=== PATIENT | male | born 1960 | race Hispanic/Latino ===

== ENCOUNTER 2017-02-15 10:16 | Emergency (ER) | payer OTHER ==
[~2017-02-15] VITALS: Ht 165.1 cm; Wt 100.0 kg
[2017-02-15] MEDS ORDERED: NAPROSYN500 MG PO (11:12)
[2017-02-15 11:39] VITALS: BP 120/90
== END 2017-02-15 11:48 | disposition home or self-care (01) | DRG 563 ==
LOC: ED 10:16
DX: S83.92XA Sprain of unspecified site of left knee, initial encounter (principal); W17.2XXA Fall into hole, initial encounter; Y92.73 Farm field as the place of occurrence of the external cause

== ENCOUNTER 2023-06-25 20:54 | Emergency (ER) | payer MEDICARE, MEDICAID ==
[~2023-06-25] VITALS: Ht 165.1 cm; Wt 113.3 kg
[~2023-06-25 20:54] MED LIST: NAPROSYN500 MG PO
[2023-06-25 21:04] VITALS: BP 127/105
[2023-06-25 21:16] VITALS: BP 133/76
[2023-06-25 21:41] LABS: BASO% 0.2 % (0-3); HEMOGLOBIN 15.2 g/dl (14.0-18.0); IMMATURE GRANULOCYTES 0.7 % (0.0-5.0); LYMPH% 4.6 % (15-41); MEAN CELL VOLUME 89.7 fL CALC (80.0-100.0); MEAN CORPUSCULAR HGB CONC 32.3 g/dL CAL (32.0-36.0); MONO% 3.6 % (2-13); NEUT# 19.54 thou/uL (1.82-7.42); NEUT% 90.9 % (42-76); RED BLOOD COUNT 5.24 mill/uL (4.70-6.10); RED CELL DISTRI WIDTH 13.1 % (11.5-15.5)
[2023-06-25 22:02] LABS: ALBUMIN 4.3 g/dL (3.2-5.0); ALKALINE PHOSPHATASE 98 u/l (38-126); ANION GAP 20 (6-22 (CALC)); BUN 11 mg/dL (8-23); BUN/CREATININE RATIO 15 (12-20 (CALC)); CARBON DIOXIDE 20 mmol/l (22-30); CHLORIDE 95 mmol/l (95-108); CREATININE 0.7 mg/dL (0.7-1.3); ETHYL ALCOHOL 197 mg/dl (0-30); GFR FOR AFR.AMER. > 60 ML/MIN (>=60 (CALC)); GFR OTHER RACES > 60 ML/MIN (>=60 (CALC)); POTASSIUM 4.2 mmol/l (3.5-5.1); SODIUM 131 mmol/l (137-146); TOTAL PROTEIN 7.7 g/dL (6.3-8.2)
[2023-06-25 22:07] LABS: BILIRUBIN, TOTAL 0.5 mg/dL (0.2-1.3); SGOT/AST 37 u/l (19-48)
[2023-06-25 22:21] VITALS: BP 127/64
[2023-06-25] MEDS ORDERED: VOLTAREN - GENE75 MG PO (22:26)
[2023-06-25] MEDS ORDERED: LORTAB 5/3255 MG PO (22:26)
[2023-06-25 22:31] VITALS: BP 132/73
== END 2023-06-25 22:51 | disposition home or self-care (01) ==
LOC: ED 20:54
PROVIDERS: Family Medicine
DX: S22.42XA Multiple fractures of ribs, left side, initial encounter for closed fracture (principal); F10.129 Alcohol abuse with intoxication, unspecified; Y90.6 Blood alcohol level of 120-199 mg/100 ml; W01.0XXA Fall on same level from slipping, tripping and stumbling without subsequent striking against object, initial encounter

== ENCOUNTER 2023-06-26 11:49 | Emergency (ER) | payer MEDICARE, MEDICAID ==
[~2023-06-26] VITALS: Ht 165.1 cm; Wt 113.0 kg
[2023-06-26] VITALS (10 sets, daily range): BP systolic 147–205; BP diastolic 90–115
[~2023-06-26 11:49] MED LIST changes: +LORTAB 5/3255 MG PO; +VOLTAREN - GENE75 MG PO
[2023-06-26 12:17] LABS: BASO% 0.1 % (0-3); EOS% 0.1 % (0-8); HEMATOCRIT 49.3 % (39.0-50.0); HEMOGLOBIN 15.9 g/dl (14.0-18.0); IMMATURE GRANULOCYTES 0.5 % (0.0-5.0); LYMPH% 13.4 % (15-41); MEAN CELL VOLUME 89.6 fL CALC (80.0-100.0); MEAN CORPUSCULAR HGB 28.9 pG CALC (26.0-32.0); MEAN CORPUSCULAR HGB CONC 32.3 g/dL CAL (32.0-36.0); MONO% 5.8 % (2-13); NEUT# 12.26 thou/uL (1.82-7.42); NEUT% 80.1 % (42-76); RED BLOOD COUNT 5.5 mill/uL (4.70-6.10); RED CELL DISTRI WIDTH 13.5 % (11.5-15.5)
[2023-06-26 12:28] LABS: ALBUMIN 4.4 g/dL (3.2-5.0); ALKALINE PHOSPHATASE 84 u/l (38-126); ANION GAP 16 (6-22 (CALC)); BUN 13 mg/dL (8-23); BUN/CREATININE RATIO 17 (12-20 (CALC)); CARBON DIOXIDE 22 mmol/l (22-30); CHLORIDE 100 mmol/l (95-108); CREATININE 0.7 mg/dL (0.7-1.3); GFR FOR AFR.AMER. > 60 ML/MIN (>=60 (CALC)); GFR OTHER RACES > 60 ML/MIN (>=60 (CALC)); POTASSIUM 4.2 mmol/l (3.5-5.1); SGOT/AST 41 u/l (19-48); SODIUM 135 mmol/l (137-146); TOTAL PROTEIN 7.8 g/dL (6.3-8.2)
[2023-06-26 12:33] LABS: BILIRUBIN, TOTAL 1.2 mg/dL (0.2-1.3)
== END 2023-06-26 15:30 | disposition short-term general hospital (02) ==
LOC: ED 11:49
PROVIDERS: Family Medicine
DX: R22.0 Localized swelling, mass and lump, head (principal); T40.2X5A Adverse effect of other opioids, initial encounter; S27.0XXA Traumatic pneumothorax, initial encounter; J98.2 Interstitial emphysema; S22.42XA Multiple fractures of ribs, left side, initial encounter for closed fracture; W19.XXXA Unspecified fall, initial encounter; Z72.0 Tobacco use